=== PATIENT | male | born 1980 | race African-American/Black ===

== ENCOUNTER 2016-11-15 13:51 | Emergency (ER) | payer MEDICAID ==
[~2016-11-15] VITALS: Ht 177.8 cm; Wt 106.6 kg
[2016-11-15 14:05] VITALS: BP 133/81
[2016-11-15] MEDS ORDERED: NAPROXEN 500 MG TABLET PO STA (14:31)
--- NOTE | 2016-11-15 14:39 | PHYS DOC ---
Past Medical History Past Medical History: No Pertinent History Past Surgical History: Other Additional Past Surgical Histo: L rotator cuff Alcohol Use: Rarely Drug Use: None Adult General Chief Complaint Chief Complaint: LOWER BACK PAIN OR INJURY HPI HPI Patient is a 36 year old medical presents with moderate bilateral low back pain radiating into his right groin that began 3 days ago. Patient states the pain is worse when he sits down. He is standing upright now. Patient denies any loss of bowel bladder function. Denies any trauma. He states he has previously urinated blood a couple years back but was not diagnosed with a kidney stone. Review of Systems Review of Systems Constitutional: Denies fever or chills [] Eyes: Denies change in visual acuity, redness, or eye pain [] HENT: Denies nasal congestion or sore throat [] Respiratory: Denies cough or shortness of breath [] Cardiovascular: No additional information not addressed in HPI [] GI: Denies abdominal pain, nausea, vomiting, bloody stools or diarrhea [] : Denies dysuria or hematuria [] Musculoskeletal: back pain Integument: Denies rash or skin lesions [] Neurologic: Denies headache, focal weakness or sensory changes [] Endocrine: Denies polyuria or polydipsia [] Current Medications Current Medications Current Medications Medications (Trade) Dose Ordered Sig/Adrienne Start Time Stop Time Status Last Admin Dose Admin Azithromycin (Zithromax) 1,000 mg 1X ONCE 11/15/16 15:45 11/15/16 15:46 DC 11/15/16 16:04 1,000 MG Ceftriaxone Sodium (Rocephin Im) 250 mg 1X ONCE 11/15/16 15:45 11/15/16 15:46 DC 11/15/16 16:03 250 MG Diazepam (Valium) 5 mg 1X ONCE 11/15/16 14:45 11/15/16 14:46 DC 11/15/16 14:50 5 MG Morphine Sulfate 5 mg 1X ONCE 11/15/16 14:45 11/15/16 14:46 DC 11/15/16 14:51 5 MG Naproxen (Naprosyn) 500 mg 1X STAT 11/15/16 14:31 11/15/16 14:36 DC 11/15/16 14:49 500 MG Allergies Allergies Allergies Coded Allergies Type Severity Reaction Last Updated Verified No Known Drug Allergies 11/15/16 No Physical Exam Physical Exam Constitutional: Well developed, well nourished, no acute distress, non-toxic appearance. [] HENT: Normocephalic, atraumatic, bilateral external ears normal, oropharynx moist, no oral exudates, nose normal. [] Eyes: PERRLA, EOMI, conjunctiva normal, no discharge. [] Neck: Normal range of motion, no tenderness, supple, no stridor. [] Cardiovascular:Heart rate regular rhythm, no murmur [] Lungs & Thorax: Bilateral breath sounds clear to auscultation [] Abdomen: Bowel sounds normal, soft, no tenderness, no masses, no pulsatile masses. [] Skin: Warm, dry, no erythema, no rash. [] Back: Moderate paraspinal muscle tenderness to the lumbar spine, no midline lumbar spine tenderness, no CVA tenderness. [] Extremities: No tenderness, no cyanosis, no clubbing, ROM intact, no edema. [] Neurologic: Alert and oriented X 3, normal motor function, normal sensory function, no focal deficits noted. [] Psychologic: Affect normal, judgement normal, mood normal. [] Current Patient Data Vital Signs Vital Signs Date Time Temp Pulse Resp B/P (MAP) Pulse Ox O2 Delivery O2 Flow Rate FiO2 11/15/16 14:51 20 98 Room Air 11/15/16 14:05 98.3 71 98.3 Lab Values Laboratory Tests Test 11/15/16 14:35 Urine Color [place] Urine Clarity Clear Urine pH 6.5 Urine Specific [place] 1.025 Urine Protein Negative mg/dL (NEG-TRACE) Urine Glucose (UA) Negative mg/dL (NEG) Urine Ketones (Stick) Negative mg/dL (NEG) Urine Blood Negative (NEG) Urine Nitrite Negative (NEG) Urine Bilirubin Negative (NEG) Urine Urobilinogen Dipstick 1.0 mg/dL (0.2 mg/dL) Urine Leukocyte Esterase Small (NEG) Urine RBC 0 /HPF (0-2) Urine WBC 1-4 /HPF (0-4) Urine Squamous Epithelial Cells Occ /LPF Urine Bacteria 0 /HPF (0-FEW) Urine Mucus Mod /LPF EKG EKG [] Radiology/Procedures Radiology/Procedures [] Course & Med Decision Making Course & Med Decision Making Pertinent Labs and Imaging studies reviewed. (See chart for details) Patient is in the ED with moderate bilateral low back pain radiating into his right groin. Lumbar spine x-rays interpreted by radiologist were negative for any acute findings. Urine was positive for small amount of leukocytes. Discussed with patient possibility he could have a UTI. He expressed concern and requested to be treated. He was given Rocephin, Azithromycin. He was instructed to follow-up with his own PCP in 1-2 weeks. Discharged with Flexeril and naproxen and Medrol Dosepak. Dragon Disclaimer Dragon Disclaimer This electronic medical record was generated, in whole or in part, using a voice recognition dictation system. Departure Departure Impression: Primary Impression: Low back pain Additional Impression: Concern about STD in male without diagnosis Disposition: HOME, SELF-CARE Condition: STABLE Patient Instructions: Back Pain, Adult Additional Instructions: You were seen for back pain. Your x-ray of the back were negative for any acute findings. We put you on medications to help. Take them as prescribed. Follow-up with your doctor in 1-2 weeks. Scripts Cyclobenzaprine Hcl (CYCLOBENZAPRINE HCL) 10 Mg Tablet 1 TAB PO TID, #30 TAB Prov: KATHLEEN COBB APRN 11/15/16 Naproxen (NAPROXEN) 500 Mg Tablet. 1 TAB PO BID, #60 TAB 1 Refill Prov: KATHLEEN COBB APRN 11/15/16 Problem Qualifiers Primary Impression: Low back pain Chronicity: acute Back pain laterality: bilateral Sciatica presence: without sciatica Qualified Codes: M54.5 - Low back pain KATHLEEN COBB APRN Nov 15, 2016 14:39
[2016-11-15] MEDS ORDERED: MORPHINE SULFATE 10 MG/ML VIAL. IM ONE (14:45)
[2016-11-15] MEDS ORDERED: diazePAM 5 MG TABLET PO ONE (14:45)
[2016-11-15 14:47] LABS: BILIRUBIN,URINE NEGATIVE (NEG); GLUCOSE,URINE NEGATIVE (NEG); NITRITE,URINE NEGATIVE (NEG); PH,URINE 6.5; PROTEIN,URINE NEGATIVE (NEG-TRACE)
[2016-11-15 14:56] LABS: RBC,URINE 0 /HPF (0-2)
[2016-11-15 14:57] LABS: BACTERIA,URINE 0 /HPF (0-FEW); SQUAMOUS EPITHELIAL CELL,UR OCC /LPF
[2016-11-15] MEDS ORDERED: AZITHROMYCIN 250 MG TABLET. PO ONE (15:45)
[2016-11-15] MEDS ORDERED: cefTRIAXone IM 250 MG VIAL IM ONE (15:45)
--- NOTE | 2016-11-15 16:06 | RAD ---
Lumbar spine, 3 views, 11/15/2016: History: Low back pain The lumbar vertebral heights and intervertebral disc spaces are well preserved. No fracture or dislocation is identified. The paraspinous soft tissues are unremarkable. IMPRESSION: No significant abnormality is detected.
[2016-11-15] MEDS ORDERED: CYCL10TA2 PO (16:29)
[2016-11-15] MEDS ORDERED: NAPR500T8 PO (16:29)
== END 2016-11-15 16:38 | disposition home or self-care (01) ==
LOC: ER 13:51
DX: Z11.3 Encounter for screening for infections with a predominantly sexual mode of transmission (principal); M54.5 Low back pain; D72.829 Elevated white blood cell count, unspecified
CPT/HCPCS: 72100; 81001; 87086; 87491; 87591; 96372; 99285; J0696; J2270; Q0144